=== PATIENT | female | born 1965 | race Caucasian/White ===

== ENCOUNTER 2023-02-05 03:11 | Emergency (ER) | payer OTHER ==
[2023-02-05] MEDS ORDERED: Sodium Chloride 0.9% 10 ML Syringe FLUSH PRN (04:13)
[2023-02-05] MEDS ORDERED: Ketorolac 30 MG/ML SDV IVPUSH ONE (04:13)
[2023-02-05] MEDS ORDERED: Ondansetron 4 MG/2 ML SDV IVPUSH ONE (04:21)
[2023-02-05 04:29] LABS: BASOPHILS PERCENT AUTO 0.3 % (0.0-1.0); EOSINOPHILS PERCENT AUTO 2.6 % (1.0-3.0); HEMATOCRIT 37.3 % (37.0-47.0); HEMOGLOBIN 11.6 g/dL (12.0-16.0); LYMPHOCYTES PERCENT AUTO 13.1 % (20.5-50.1); MEAN CORPUSCULAR HEMOGLOBIN 24.9 pg (27.0-34.0); MEAN CORPUSCULAR HGB CONC 31.1 g/dL (33.0-35.0); MONOCYTES PERCENT AUTO 2.7 % (2-8); NEUTROPHILS PERCENT AUTO 81.3 % (42.2-75.2); PLATELET COUNT,PLT 437 10^3/uL (150-450); RED BLOOD CELL COUNT 4.66 10^6/uL (4.2-5.4); WHITE BLOOD CELL COUNT,WBC 6.2 10^3/uL (5.0-10.0)
[2023-02-05 04:30] LABS: APPEARANCE,URINE SLIGHTLY CLOUDY (CLEAR); BILIRUBIN,URINE NEGATIVE (NEGATIVE); COLOR,URINE YELLOW (YELLOW); GLUCOSE,URINE 100 (NEGATIVE); KETONES,URINE NEGATIVE (NEGATIVE); LEUKOCYTE ESTERASE,URINE NEGATIVE (NEGATIVE); NITRITE,URINE NEGATIVE (NEGATIVE); OCCULT BLOOD,URINE NEGATIVE (NEGATIVE); PH,URINE 7.5 (5.0-9.0); PROTEIN,URINE NEGATIVE (NEGATIVE); UROBILINOGEN,URINE 0.2 mg/dL (0.2-1.0)
[2023-02-05] MEDS ORDERED: HYDROmorphone 1 MG/ML Syringe IVPUSH ONE (05:37)
== END 2023-02-05 07:20 | disposition home or self-care (01) ==
LOC: DL.ED 03:11
DX: R10.32 Left lower quadrant pain (principal); E03.9 Hypothyroidism, unspecified; E66.9 Obesity, unspecified; Z68.42 Body mass index [BMI] 45.0-49.9, adult
CPT/HCPCS: 36415; 72192; 81003; 85025; 96374; 96375; 99284; J1170; J1885; J2405

== ENCOUNTER → 2024-02-26 | Day surgery (SDC) | payer OTHER ==
[~2024-02-26] MED LIST: Dextrose 5%-0.45% NaCl 1,000 ML IV SCH; Midazolam 1 MG/ML 2 ML SDV ONE; fentaNYL 100 MCG/2 ML SDV ONE
== END ==
LOC: DL.ENDO 06:00
PROVIDERS: ATTEND Internal Medicine Gastroenterology
DX: Z12.11 Encounter for screening for malignant neoplasm of colon (principal); Z53.8 Procedure and treatment not carried out for other reasons

== ENCOUNTER 2025-01-13 21:24 | Emergency (ER) | payer OTHER ==
[2025-01-13 22:19] LABS: APPEARANCE,URINE SLIGHTLY CLOUDY (CLEAR); BILIRUBIN,URINE NEGATIVE (NEGATIVE); COLOR,URINE YELLOW (YELLOW); GLUCOSE,URINE NEGATIVE (NEGATIVE); KETONES,URINE NEGATIVE (NEGATIVE); LEUKOCYTE ESTERASE,URINE SMALL (NEGATIVE); NITRITE,URINE NEGATIVE (NEGATIVE); OCCULT BLOOD,URINE MODERATE (NEGATIVE); PROTEIN,URINE 30 (NEGATIVE); UROBILINOGEN,URINE 0.2 mg/dL (0.2-1.0)
[2025-01-13] MEDS: fentaNYL 100 MCG/2 ML SDV IVPUSH ONE ×2 (22:20→23:43)
[2025-01-13] MEDS: Lactated Ringers 1,000 ML IV ONE ×2 (22:21→23:45)
[2025-01-13] MEDS: Ondansetron 4 MG/2 ML SDV IVPUSH ONE (22:21)
[2025-01-13 22:28] LABS: BASOPHILS PERCENT AUTO 0.7 % (0.0-1.0); EOSINOPHILS PERCENT AUTO 0.7 % (1.0-3.0); HEMATOCRIT 47.8 % (37.0-47.0); HEMOGLOBIN 15.8 g/dL (12.0-16.0); MEAN CORPUSCULAR HEMOGLOBIN 28.8 pg (27.0-34.0); MEAN CORPUSCULAR HGB CONC 33.1 g/dL (33.0-35.0); MEAN CORPUSCULAR VOLUME 87.1 fL (80-100); MONOCYTES PERCENT AUTO 0.7 % (2-8); NEUTROPHILS PERCENT AUTO 81.9 % (42.2-75.2); PLATELET COUNT,PLT 312 10^3/uL (150-450); RED BLOOD CELL COUNT 5.49 10^6/uL (4.2-5.4); WHITE BLOOD CELL COUNT,WBC 2.9 10^3/uL (5.0-10.0)
[2025-01-13 22:34] LABS: BACTERIA,URINE FEW /HPF (0-FEW/HPF); EPITHELIAL CELLS,URINE FEW /HPF (NOT SEEN); RBC,URINE 30-40 /HPF (0-5)
[2025-01-13 22:39] LABS: A/G RATIO 0.9; ALBUMIN 3.7 g/dL (3.4-5.0); BILIRUBIN TOTAL 1.5 mg/dL (0.2-1.0); BUN/CREATININE RATIO 11.5 (No establ ref range); CREATININE 1.3 mg/dL (0.55-1.02); EST CRCL DRUG DOSING (CG) 42.96 mL/min; MAGNESIUM 2.3 mg/dL (1.8-2.4); PROTEIN TOTAL,TP 7.7 g/dL (6.4-8.2)
[2025-01-13 22:47] LABS: LACTIC ACID 7.1 mmol/L (0.4-2.0)
[2025-01-13] MEDS: cefTRIAXone 2 GM Vial IVPUSH ONE (23:15)
[2025-01-13] MEDS: Metoclopramide 10 MG/2 ML SDV IVPUSH ONE (23:45)
[2025-01-14] MEDS: Potassium Chloride 20 MEQ in Premix Bag 1 BAG IV ONE (00:26)
[2025-01-14] MEDS: Lactated Ringers 1,000 ML IV SCH (00:40)
[2025-01-14] MEDS: fentaNYL 100 MCG/2 ML SDV IVPUSH ONE (02:45)
== END 2025-01-14 04:12 ==
LOC: DL.ED 21:24
DX: N13.2 Hydronephrosis with renal and ureteral calculous obstruction (principal); E78.00 Pure hypercholesterolemia, unspecified; I10 Essential (primary) hypertension; E11.9 Type 2 diabetes mellitus without complications; E03.9 Hypothyroidism, unspecified; Z79.890 Hormone replacement therapy; Z79.82 Long term (current) use of aspirin; Z79.84 Long term (current) use of oral hypoglycemic drugs
CPT/HCPCS: 36415; 74176; 80053; 81001; 83605; 83735; 85025; 87040; 87086; 87088; 87186; 93005; 96361; 96365; 96366; 96375; 96376; 99285; J0696; J2405; J2765; J3010; J3480; J7120; 93010; 99283